=== PATIENT | female | born 1950 | race Two or more races ===

== ENCOUNTER 2018-08-21 07:41 | Emergency (ER) | payer OTHER ==
[~2018-08-21] VITALS: Ht 152.4 cm; Wt 110.2 kg
[2018-08-21] MEDS ORDERED: METFORMIN HCL850 MG PO (08:01)
[2018-08-21] MEDS ORDERED: CARVEDILOL25 MG PO (08:01)
[2018-08-21] MEDS ORDERED: ASPIR 8181 MG PO (08:01)
[2018-08-21] MEDS ORDERED: HYDRALAZINE HCL25 MG PO (08:02)
[2018-08-21] MEDS ORDERED: AMLODIPINE BESY10 MG PO (08:02)
[2018-08-21] MEDS ORDERED: IRBESARTAN-HCT1 EAC1 PO (08:02)
[2018-08-21] MEDS ORDERED: LIPITOR40 MG PO (08:03)
[2018-08-21] MEDS ORDERED: CYCLOBENZAPRINE10 MG PO (09:24)
[2018-08-21] MEDS ORDERED: DICLOFENAC SODI50 MG PO (09:24)
== END 2018-08-21 11:00 | disposition home or self-care (01) ==
LOC: ER 07:41
DX: M54.89 Other dorsalgia (principal); M54.6 Pain in thoracic spine

== ENCOUNTER 2022-08-03 07:15 | Inpatient (IN) | payer OTHER ==
[~2022-08-03] VITALS: Ht 149.9 cm; Wt 77.1 kg
[~2022-08-03 07:15] MED LIST: AMLODIPINE BESY10 MG PO; ASPIR 8181 MG PO; CARVEDILOL25 MG PO; CYCLOBENZAPRINE10 MG PO; DICLOFENAC SODI50 MG PO; HYDRALAZINE HCL25 MG PO; IRBESARTAN-HCT1 EAC1 PO; LIPITOR40 MG PO; METFORMIN HCL850 MG PO
[2022-08-08] MEDS ORDERED: VITAMIN D3250 MCG (11:21)
[2022-08-08] MEDS ORDERED: METFORMIN HCL850 M1 (11:21)
[2022-08-08] MEDS ORDERED: NAPROXEN SODIU550 MG (11:21)
[2022-08-10] MEDS ORDERED: GABAPENTIN100 MG PO (10:37)
[2022-08-10] MEDS ORDERED: XARELTO10 MG PO (10:37)
[2022-08-10] MEDS ORDERED: NORFLEX100MG PO (10:37)
[2022-08-10] MEDS ORDERED: OXYC1TAB9 PO (10:37)
== END 2022-08-10 15:05 | DRG 470 ==
LOC: SURH 08-08 06:35 → O/R 08-08 06:35 → SURG 08-08 10:15 → SURH 08-08 13:03
PROVIDERS: ADMIT Orthopaedic Surgery; ATTEND Orthopaedic Surgery
PROC: 0SRC0J9 Replacement of Right Knee Joint with Synthetic Substitute, Cemented, Open Approach (ICD-10-PCS; principal; 2022-08-08 10:15)
DX: M17.11 Unilateral primary osteoarthritis, right knee (principal); D62 Acute posthemorrhagic anemia; M85.661 Other cyst of bone, right lower leg; I10 Essential (primary) hypertension; E11.9 Type 2 diabetes mellitus without complications; Z96.651 Presence of right artificial knee joint; Z20.822 Contact with and (suspected) exposure to COVID-19

== ENCOUNTER 2024-01-08 12:16 | Emergency (ER) | payer OTHER ==
[~2024-01-08] VITALS: Ht 152.4 cm; Wt 88.5 kg
[~2024-01-08 12:16] MED LIST changes: +GABAPENTIN100 MG PO; +METFORMIN HCL850 M1; +NAPROXEN SODIU550 MG; +NORFLEX100MG PO; +OXYC1TAB9 PO; +VITAMIN D3250 MCG; +XARELTO10 MG PO
[2024-01-08] MEDS ORDERED: ALBUTEROL SULFATE 3 ML/2.5 MG AMPUL.NEB IH SCH (15:00)
[2024-01-08] MEDS ORDERED: IPRATROPIUM BROMIDE 0.5 MG/2.5 ML AMPUL.NEB IH SCH (15:00)
[2024-01-08] MEDS ORDERED: BUDESONIDE 0.5 MG/2 ML AMPUL.NEB IH ONE (15:00)
[2024-01-08] MEDS ORDERED: GUAIFENESIN/DEXTROMETHORPHAN 100 MG/5 ML ML PO ONE (15:00)
[2024-01-08 15:35] LABS: HEMATOCRIT 41.5 % (36.0-45.00); HEMOGLOBIN 14.2 g/dL (12.0-15.00); MEAN CELL VOLUME 93.9 fL (80.00-100.00); MEAN CORPUSCULAR HEMOGLOBIN 32.1 pg (27.00-32.0); MEAN CORPUSCULAR HGB CONC 34.1 g/dl (32.0-36.0); PLATELET COUNT 341 K/uL (150-450); RED BLOOD COUNT 4.42 M/uL (4.00-6.00); RED CELL DISTRIBUTION WIDTH 13.8 % (11.5-14.5)
[2024-01-08 16:04] LABS: CALCIUM 9.8 mg/dL (8.5-10.1); CREATININE SERUM 0.57 mg/dL (0.55-1.02); GFR 104.26; POTASSIUM 4.14 mEq/L (3.5-5.1)
[2024-01-08] MEDS ORDERED: BENZONATATE200 M1 PO (19:38)
[2024-01-08] MEDS ORDERED: DEXAMETHASONE4 MG PO (19:38)
[2024-01-08] MEDS ORDERED: SINGULAIR10 MG PO (19:38)
[2024-01-08] MEDS ORDERED: ZYRTEC10 MG PO (19:38)
== END 2024-01-08 20:57 | disposition home or self-care (01) ==
LOC: ER 12:16
PROVIDERS: General Practice
DX: R05.8 Other specified cough (principal); E11.9 Type 2 diabetes mellitus without complications; Z79.84 Long term (current) use of oral hypoglycemic drugs; I11.9 Hypertensive heart disease without heart failure